=== PATIENT | male | born 2000 | race Caucasian/White ===

== ENCOUNTER 2021-08-11 13:47 | Emergency (ER) | payer OTHER, BC, SELFPAY ==
[2021-08-11 14:11] VITALS: BP 104/79; PULSE 82; RESP 18; TEMP 36.6; O2SAT 100
[2021-08-11] MEDS: TETANUS,DIPHTHERIA,AC PERTUSSIS ADULT (0.5 ML) BOOSTRIX IM (15:01)
--- NOTE | 2021-08-11 17:32 | ED.WOUNDLAC ---
HPI - Wound/Laceration General Chief Complaint: Wound/Laceration Stated Complaint: finger lac Time Seen by Provider: 08/11/21 14:41 History of Present Illness HPI narrative: Patient is a 21-year-old male here for evaluation of injury to his right index finger sustained 1 hour ago at work. Patient was using a scraper meat when he accidentally sliced the tip of his fingertip off. States that the scraper meat was clean as he had just finished sanitizing it. He covered the area with towels and presented to the emergency department. Denies numbness tingling or difficulty moving the digit. He is unsure of his last tetanus. Related Data Allergies Allergy/AdvReac Type Severity Reaction Status Date / Time No Known Allergies Allergy Verified 08/11/21 15:02 Review of Systems Review of Systems: Gen.: Denies fevers or chills Eyes: Denies eye pain or visual change ENT: Denies congestion Respiratory: Denies shortness of breath or cough CV: Denies chest pain or palpitations GI: Denies abdominal pain nausea, emesis or diarrhea denies burning, urgency, frequency or hematuria Musculoskeletal: Denies back pain or muscle pain Neuro: Denies numbness, tingling, weakness or focal weakness Skin: Reports laceration Except as documented, all other systems reviewed and negative Exam Narrative: Gen: Alert, oriented, no acute distress. Eyes: EOMI, no icterus Pulm: Respirations even and unlabored, symmetric thorax expansion, no audible stridor or visible cyanosis CV: Regular rate per telemetry GI: No distension, no voluntary/involuntary guarding Neuro: AOx4, moves all extremities without apparent difficulty or weakness, follows commands Skin: The very distal tip of the skin of patient's right index finger is avulsed with active bleeding. No evidence of tendon involvement or bone. Full range of motion in the finger. Sensation intact over hand and finger. Psych: Normal mood/affect, insight/judgement good, adequate fund of knowledge, recent/remote memory intact Course Vital Signs Vital signs: Vital Signs Temperature 97.8 F 08/11/21 14:11 Pulse Rate 82 08/11/21 14:11 Respiratory Rate 18 08/11/21 14:11 Blood Pressure 104/79 08/11/21 14:11 Pulse Oximetry 100 08/11/21 14:11 Oxygen Delivery Room Air 08/11/21 14:11 Temperature 97.8 F 08/11/21 14:11 Pulse Rate 82 08/11/21 14:11 Respiratory Rate 18 08/11/21 14:11 Blood Pressure 104/79 08/11/21 14:11 Pulse Oximetry 100 08/11/21 14:11 Oxygen Delivery Room Air 08/11/21 14:11 MDM - Wound/Laceration MDM Narrative Medical decision making narrative: 21-year-old male here for evaluation of a skin avulsion to the right distal fingertip. No evidence of tendon, bone or nerve involvement on exam. Vital signs are normal, area was irrigated with tap water and soap and Surgicel was applied for hemostasis. Tetanus was updated. Discussed return precautions, he voiced understanding. Provided with work note. Discharge Plan Discharge Clinical Impression: Avulsion of skin Patient Disposition: Home, Self-Care Condition: Stable Instructions: Antibiotic Form, Skin Avulsion (ED) Additional Instructions: Your fingertip avulsion was covered with surgicel. This will absorb in about 3 days. Wear a glove over that hand at work. Return to the emergency department if you develop numbness or tingling in your digit, you can't move the finger, or you develop fevers or chills. Follow up with your primary care doctor next week. Follow-up/Referrals: PHYSICIAN,HEALTHCARE ASSOCIATE [Primary Care Provider] - Stand Alone Forms: Work/School Release IP
== END 2021-08-11 15:34 | disposition home or self-care (01) ==
PROVIDERS: Emergency Provider Emergency Medicine
DX: S61.200A Unspecified open wound of right index finger without damage to nail, initial encounter (principal); Z23 Encounter for immunization; W31.82XA Contact with other commercial machinery, initial encounter
CPT/HCPCS: 90471; 90715; 99282